=== PATIENT | female | born 1950 | race Caucasian/White ===

== ENCOUNTER 2016-10-29 15:48 | Emergency (ER) | payer OTHER ==
[~2016-10-29] VITALS: Ht 152.4 cm; Wt 64.5 kg
[~2016-10-29 15:48] MED LIST: ALBU18HF INH; ALPR0.254 PO; ALPR0.5T6 PO; ASPI-515 PO; ATEN25TA PO; ATOR20TA9 PO; BIOT1TAB PO; CHOL10002 PO; CITA20TA9 PO; CLOB15CR19 TP; DICY10CA3 PO; DOCU100C8 PO; DOCU100T3 PO; GABA600T2 PO; HYDR-3138 PO; HYDR-3240 PO; LEVO750T26 PO; LORA1TAB PO; LOSA25TA5 PO; METH750T87 PO; MILK175T PO; NITR100C56 PO; OMEG1CAP34 PO; VITA1CAP PO; ZOLP10TA5 PO
[2016-10-29] MEDS ORDERED: HYDROmorphone 1 MG/ML, 1ML ONE (16:18)
[2016-10-29] MEDS ORDERED: ONDANSETRON 2MG/ML, 2ML ONE (16:19)
[2016-10-29] MEDS ORDERED: FAMOTIDINE 20 MG/2 ML ONE (16:19)
[2016-10-29] MEDS ORDERED: SODIUM CHLORIDE FLUSH 10ML SYR IVF ONE (16:30)
[2016-10-29] MEDS ORDERED: FAMOTIDINE 20 MG/2 ML IVP ONE (16:30)
[2016-10-29] MEDS ORDERED: ONDANSETRON 2MG/ML, 2ML IVPush ONE (16:30)
[2016-10-29] MEDS ORDERED: HYDROmorphone 1 MG/ML, 1ML IV ONE (16:30)
[2016-10-29] MEDS ORDERED: SODIUM CHLORIDE 0.9% 1,000ML IVBOLUS ONE (16:30)
[2016-10-29 16:44] LABS: ASPARTATE AMINO TRANSFERASE 17 U/L (15-37); BLOOD UREA NITROGEN 12 mg/dL (7-18)
[2016-10-29] MEDS ORDERED: HYDROcodone/APAP 5/325 TABLET PO ONE (18:30)
[2016-10-29] MEDS ORDERED: HYDROcodone/APAP 5/325 TABLET ONE (18:39)
[2016-10-29 20:05] VITALS: BP 128/70
== END 2016-10-29 20:09 | disposition home or self-care (01) ==
LOC: ED 19:56
DX: R10.84 Generalized abdominal pain (principal); I25.2 Old myocardial infarction; Z90.49 Acquired absence of other specified parts of digestive tract; F41.9 Anxiety disorder, unspecified
CPT/HCPCS: 36415; 74020; 80053; 83690; 85025; 96361; 96374; 99284; J7030; S0028

== ENCOUNTER → 2017-02-12 | Outpatient (CLI) | payer OTHER ==
[~2017-02-12] MED LIST changes: -BIOT1TAB PO; +BIOT1TAB2 PO; +DOCU100C33 PO; -DOCU100C8 PO; -HYDR-3138 PO; +HYDR-3237 PO; +REGADENOSON 0.4 MG/5 ML SYRINGE ONE
== END | disposition home or self-care (01) ==
LOC: CFH 12:06
PROVIDERS: ATTEND Internal Medicine Cardiovascular Disease
DX: I08.0 Rheumatic disorders of both mitral and aortic valves (principal); I25.10 Atherosclerotic heart disease of native coronary artery without angina pectoris; I10 Essential (primary) hypertension; E78.5 Hyperlipidemia, unspecified; Z95.5 Presence of coronary angioplasty implant and graft; Z87.891 Personal history of nicotine dependence
CPT/HCPCS: 78452; 93017; 93306; A9502; J2785

== ENCOUNTER 2018-06-01 12:09 | Observation (INO) | payer MEDICARE ==
[~2018-06-01] VITALS: Ht 152.4 cm; Wt 64.7 kg
[~2018-06-01 12:09] MED LIST changes: +ATOR20TA37 PO; -ATOR20TA9 PO; -GABA600T2 PO; +GABA600T7 PO; +LOSA25TA25 PO; -LOSA25TA5 PO; -REGADENOSON 0.4 MG/5 ML SYRINGE ONE
[2018-06-01 13:57] LABS: MEAN CORPUSCULAR HEMOGLOBIN 30.5 pg (27.0-34.8); MEAN CORPUSCULAR HGB CONC 32.7 g/dL (32.4-35.8); MEAN CORPUSCULAR VOLUME 93.3 fL (80-100); MEAN PLATELET VOLUME 8.6 fL (7.4-10.4); PLATELET COUNT 271 x10^3/uL (130-400); RED BLOOD COUNT 4.98 x10^6/uL (3.82-5.3); RED CELL DISTRIBUTION WIDTH 15.6 % (9.6-15.2)
[2018-06-01] MEDS ORDERED: ASPIRIN 81 MG TABLET CHEW PO ONE (14:00)
[2018-06-01] MEDS ORDERED: NITROGLYCERIN SINGLE TAB 0.4 MG SL PRN (14:00)
[2018-06-01 14:10] LABS: ALBUMIN 3.7 g/dL (3.4-5.0); ANION GAP 6 mmol/L (5-15); CALCIUM 8.9 mg/dL (8.5-10.1); CHLORIDE 109 mmol/L (98-107); CREATININE 0.78 mg/dL (0.55-1.02)
[2018-06-01 14:13] LABS: TROPONIN I < 0.015 ng/mL (0.000-0.045)
[2018-06-01] MEDS ORDERED: ASPIRIN 81 MG TABLET CHEW ONE (14:14)
[2018-06-01] MEDS ORDERED: NITROGLYCERIN SINGLE TAB 0.4 MG SL ONE (14:14)
[2018-06-01 14:31] LABS: BASOPHILS # (AUTO) 0.02 x10^3/uL (0-0.1); BASOPHILS % (AUTO) 0 % (0-1); EOSINOPHILS # (AUTO) 0.16 x10^3/uL (0-0.4); EOSINOPHILS % (AUTO) 1 % (1-7); LYMPHOCYTES # (AUTO) 2.04 x10^3/uL (1-3.4); LYMPHOCYTES % (AUTO) 12 % (22-44); MD SCAN; MONOCYTES # (AUTO) 1.24 x10^3/uL (0.2-0.8); MONOCYTES % (AUTO) 7 % (2-9); NEUTROPHILS # (AUTO) 13.47 x10^3/uL (1.8-6.8); NEUTROPHILS % (AUTO) 80 % (42-75)
--- NOTE | 2018-06-01 14:33 | NUR ---
PT MEDICATED PER ORDER. PT STATES THAT THE CHEST PRESSURE HAS SINCE RESOLVED AND WAS NOTED WITH A DECREASE IN PTS BP
--- NOTE | 2018-06-01 15:38 | NUR ---
ASSUMED CARE OF PT. PIV PLACED IN PT.
[2018-06-01] MEDS ORDERED: POTASSIUM CHLORIDE 20 MEQ TAB.ER.PRT PO ONE (16:00)
[2018-06-01] MEDS ORDERED: MAALOX/HYOSCYAMINE/LIDOCAINE 45 ML BTL PO ONE (16:00)
[2018-06-01] MEDS ORDERED: HYDROcodone/APAP 5/325 TABLET PO PRN (16:00)
[2018-06-01] MEDS ORDERED: ENOXAPARIN 40 MG/0.4 ML SQ SCH (16:00)
[2018-06-01] MEDS ORDERED: LORATADINE/PSE 5/120MG TAB.ER.12H PO PRN (16:00)
[2018-06-01] MEDS: GABAPENTIN 300 MG CAPSULE PO SCH ×2 (16:00→21:43)
[2018-06-01] MEDS ORDERED: LISINOPRIL 10 MG TABLET PO ONE (16:00)
[2018-06-01 16:28] LABS: TROPONIN I < 0.015 ng/mL (0.000-0.045)
--- NOTE | 2018-06-01 17:36 | NUR ---
REPORT TO [facility]
[2018-06-01 18:05] VITALS: BP 153/79
[2018-06-01] MEDS ORDERED: HYDR-3653 PO (18:35)
[2018-06-01] MEDS: SODIUM CHLORIDE 0.9% 1,000 ML IV SCH (18:35)
[2018-06-01 19:49] VITALS: BP 129/69
[2018-06-01] MEDS ORDERED: ZOLPIDEM 10MG TABLET PO SCH (21:00)
[2018-06-01] MEDS ORDERED: ATORVASTATIN 20 MG TABLET PO SCH (21:00)
[2018-06-01] MEDS: DICYCLOMINE 10 MG CAPSULE PO SCH (21:43)
[2018-06-01 22:39] LABS: TROPONIN I < 0.015 ng/mL (0.000-0.045)
[2018-06-02 02:44] VITALS: BP 112/70
[2018-06-02 06:12] LABS: ANION GAP 5 mmol/L (5-15); CALCIUM 8.4 mg/dL (8.5-10.1); CHLORIDE 112 mmol/L (98-107); CREATININE 0.72 mg/dL (0.55-1.02)
[2018-06-02 07:39] LABS: CHOL/HDL RATIO 2.2; LDL/HDL RATIO 0.9 (0.5-3.0)
[2018-06-02 08:43] VITALS: BP 103/69
[2018-06-02] MEDS: DICYCLOMINE 10 MG CAPSULE PO SCH (08:50)
[2018-06-02] MEDS: GABAPENTIN 300 MG CAPSULE PO SCH ×2 (08:50→16:53)
[2018-06-02] MEDS: SODIUM CHLORIDE 0.9% 1,000 ML IV SCH (08:53)
[2018-06-02] MEDS ORDERED: MULTIVITS,STRESS FORMULA 1 TABLET PO SCH (09:00)
[2018-06-02] MEDS ORDERED: LOSARTAN 25MG TABLET PO SCH (09:00)
[2018-06-02] MEDS ORDERED: CHOLECALCIFEROL 1,000 UNIT TABLET PO SCH (09:00)
[2018-06-02] MEDS ORDERED: ATENOLOL 25 MG TABLET PO SCH (09:00)
[2018-06-02] MEDS ORDERED: TEMPLATE NON-FORMULARY MED. (Biotin** 1 MG) PO SCH (09:00)
[2018-06-02] MEDS ORDERED: DOCUSATE 100 MG CAPSULE PO SCH (09:00)
[2018-06-02] MEDS ORDERED: CITALOPRAM 20 MG TABLET PO SCH (09:00)
[2018-06-02] MEDS ORDERED: AMLODIPINE 2.5 MG TABLET PO SCH (09:00)
[2018-06-02] MEDS ORDERED: ASPIRIN 81 MG TABLET EC PO SCH (09:00)
[2018-06-02 09:41] VITALS: BP 130/79
[2018-06-02] MEDS ORDERED: VALACYCLOVIR 500MG TABLET PO SCH ×2 (11:30→11:51)
[2018-06-02] MEDS ORDERED: REGADENOSON 0.4 MG/5 ML SYRINGE ONE (11:34)
[2018-06-02 14:35] VITALS: BP 92/60
[2018-06-02] MEDS ORDERED: HYDR25TA11 PO (17:18)
== END 2018-06-02 18:10 | disposition home or self-care (01) ==
LOC: ED 15:00 → INTOOBSV 15:18 → EDIP 15:18 → 5SO 17:58
PROVIDERS: ADMIT Internal Medicine; ATTEND Internal Medicine
DX: R07.89 Other chest pain (principal); K21.9 Gastro-esophageal reflux disease without esophagitis; E87.6 Hypokalemia; I10 Essential (primary) hypertension; I21.9 Acute myocardial infarction, unspecified; I25.10 Atherosclerotic heart disease of native coronary artery without angina pectoris; I25.2 Old myocardial infarction; I46.9 Cardiac arrest, cause unspecified; Z79.82 Long term (current) use of aspirin; Z95.5 Presence of coronary angioplasty implant and graft
CPT/HCPCS: 36415; 71045; 78452; 80048; 80061; 82040; 83735; 84484; 85025; 93005; 93017; 93306; 96372; 99284; A9502; C9898; G0378; J1650; J2785; J7030